=== PATIENT | male | born 1950 | race Caucasian/White ===

== ENCOUNTER → 2024-09-09 | Outpatient (CLI) | payer MEDICARE ==
--- NOTE | 2024-09-09 17:49 | NM ---
EXAMINATION TYPE: NM DatScan Brain SPECT DATE OF EXAM: 09/09/2024 COMPARISON: NONE CLINICAL INDICATION: Male, 74 years old with history of R25.1 TREMOR, UNSPECIFIED; TECHNIQUE: 10 drops of Lugol's solution was administered 1 hour prior to injection as a thyroid bloc heriberto agent. After the administration of 4.69 mCi I-123 Ioflupane DaTscan. Images obtained 3 hours p ost injection. SPECT images of the brain were acquired with axial and coronal reconstructions. FINDINGS: There is symmetric bilateral striatal activity. No significant increased background activity. IMPRESSION: No scintigraphic evidence for Parkinson's disease or Parkinsonian syndrome at this time. [facility], , 09/09/2024 5:46 PM
== END | disposition home or self-care (01) ==
LOC: RADNMMAIN 09:49
PROVIDERS: ATTEND Psychiatry & Neurology Neurology
DX: R25.1 Tremor, unspecified (principal)
CPT/HCPCS: 78803